=== PATIENT | female | born 1955 | race African-American/Black ===

== ENCOUNTER 2018-10-16 09:26 | Emergency (ER) | payer OTHER ==
[~2018-10-16] VITALS: Ht 198.1 cm; Wt 72.0 kg
[~2018-10-16 09:26] MED LIST: ADV250 IH; ALBU8HFA IH; AMIT50TA3 PO; AMLO-511 PO; BECL8.7A6 IH; KDUR10 PO; OMEP20TA2 PO; SIMV-260 PO; TRIA1TAB3 PO
[2018-10-16] MEDS ORDERED: SODIUM CHLORIDE 0.9% 1,000 ML IV ONE (10:45)
[2018-10-16] MEDS ORDERED: MECLIZINE HCL 25 MG TABLET PO ONE ×2 (10:45→13:45)
[2018-10-16] MEDS ORDERED: ONDANSETRON HCL 4 MG/2 ML VIAL IVP ONE (10:45)
[2018-10-16 11:01] LABS: BASOPHILS % (AUTO) 0.8 % (0.0-2.0); EOSINOPHILS % (AUTO) 4.3 % (1.0-6.0); HEMOGLOBIN 13.2 g/dL (12.0-16.0); LYMPHOCYTES # (AUTO) 1.6 K/uL (1.0-4.8); LYMPHOCYTES % (AUTO) 26.8 % (22.0-44.0); MEAN CORPUSCULAR HEMOGLOBIN 31.8 pg (26.0-34.0); MEAN CORPUSCULAR HGB CONC 33.7 G/dL (31.0-37.0); MEAN CORPUSCULAR VOLUME 94 fL (80-100); MONOCYTES # (AUTO) 0.5 K/uL (0.1-1.0); MONOCYTES % (AUTO) 8.4 % (2.0-9.0); NEUTROPHILS # (AUTO) 3.5 K/uL (1.8-7.7); NEUTROPHILS % (AUTO) 59.7 % (40.0-70.0); PLATELET COUNT (AUTO) 323 K/uL (150-450); RED BLOOD CELL COUNT(AUTO) 4.15 MIL/uL (4.00-5.20); RED CELL DISTRIBUTION WIDTH 12.8 % (11.5-14.5)
[2018-10-16 11:11] LABS: ANION GAP 10 mmol/L (8-16); CALCIUM, TOTAL 8.9 mg/dL (8.8-10.5); CARBON DIOXIDE 30 mmol/L (22-29); CHLORIDE 103 mmol/L (98-107); CREATININE 1.01 mg/dL (0.60-1.30); GLOMERULAR FILTR. RATE CALC > 60 mL/min (>60); GLUCOSE,RANDOM 105 mg/dL (70-110); POTASSIUM 3.1 mmol/L (3.5-5.1); SODIUM SERUM 143 mmol/L (136-145); UREA NITROGEN, BLOOD 13 mg/dL (7-18)
[2018-10-16 11:33] LABS: ALANINE AMINOTRANSFERASE 25 U/L (12-78); ALBUMIN 3.9 g/dL (3.4-5.0); ALKALINE PHOSPHATASE 57 U/L (46-116); ASPARTATE AMINOTRANSFERASE 20 U/L (15-37); BILIRUBIN,TOTAL 0.5 mg/dL (0.1-1.0); TOTAL PROTEIN, SERUM 7.2 g/dL (6.4-8.2)
[2018-10-16 12:12] LABS: AMPHET/METH SCREEN,URINE NEGATIVE (NEGATIVE); BARBITURATE SCREEN, URINE NEGATIVE (NEGATIVE); BENZODIAZEPINES SCREEN,URINE NEGATIVE (NEGATIVE); CANNABINOID SCREEN,URINE POSITIVE (NEGATIVE); COCAINE SCREEN,URINE NEGATIVE (NEGATIVE); METHADONE SCREEN, URINE NEGATIVE (NEGATIVE); OPIATE SCREEN,URINE POSITIVE (NEGATIVE); PHENCYCLIDINE SCREEN,URINE NEGATIVE (NEGATIVE)
[2018-10-16 12:39] LABS: APPEARANCE,URINE CLEAR (CLEAR); BILIRUBIN,URINE NEGATIVE (NEGATIVE); GLUCOSE, URINE (UA) NEGATIVE (NEGATIVE); KETONES,URINE TRACE mg/dL (NEGATIVE); LEUKOCYTE ESTERASE ,URINE NEGATIVE (NEGATIVE); NITRATE,URINE NEGATIVE (NEGATIVE); OCCULT BLOOD,URINE NEGATIVE (NEGATIVE); PROTEIN,URINE NEGATIVE (NEGATIVE)
[2018-10-16 12:43] LABS: BACTERIA,URINE Rare /HPF (None Seen); RBC,URINE None Seen /HPF (0-2); SQUAMOUS EPITHELIAL CELL,UR Rare /LPF (None Seen); WBC,URINE 0-2 /HPF (0-5)
[2018-10-16] MEDS ORDERED: POTASSIUM CHLORIDE 20 MEQ ER TABLET PO ONE (13:45)
[2018-10-16 14:06] VITALS: BP 109/79
== END 2018-10-16 14:13 | disposition home or self-care (01) ==
LOC: EMS 09:27
DX: R42 Dizziness and giddiness (principal); I10 Essential (primary) hypertension; E78.00 Pure hypercholesterolemia, unspecified; J44.9 Chronic obstructive pulmonary disease, unspecified; K21.9 Gastro-esophageal reflux disease without esophagitis; F32.9 Major depressive disorder, single episode, unspecified; Z88.0 Allergy status to penicillin; Z88.1 Allergy status to other antibiotic agents; Z87.891 Personal history of nicotine dependence; Z79.899 Other long term (current) drug therapy
CPT/HCPCS: 36415; 70450; 80053; 80307; 81001; 84484; 85025; 93005; 96361; 96374; 99285; J2405; J7030

== ENCOUNTER 2019-03-08 06:19 | Day surgery (SDC) | payer OTHER ==
[~2019-03-08] VITALS: Ht 167.6 cm; Wt 55.0 kg
[~2019-03-08 06:19] MED LIST changes: +SODIUM CHLORIDE 0.9% 1,000 ML IV ONE
[2019-03-08] MEDS ORDERED: LIDOCAINE 2% 11 ML JELLY TP ONE (06:20)
[2019-03-08] MEDS ORDERED: BENZOCAINE 20% 50 MCG/SPRAY 57 GM TP ONE (06:20)
[2019-03-08] MEDS ORDERED: ALBUTEROL SULFATE 2.5 MG/0.5 ML NEB SOLUTION NEB ONE (06:20)
[2019-03-08] MEDS ORDERED: MELO-107 PO (07:18)
[2019-03-08] MEDS ORDERED: POLY454P5 MC (07:18)
[2019-03-08] MEDS ORDERED: CHOL50004 PO (07:18)
[2019-03-08] MEDS ORDERED: DICL2100G TP (07:18)
[2019-03-08] MEDS ORDERED: HYDR-4119 PO (07:18)
[2019-03-08] MEDS ORDERED: TRIA1TAB91 PO (07:18)
[2019-03-08] MEDS ORDERED: SODIUM CHLORIDE 0.9% 1,000 ML IV ONE (07:30)
[2019-03-08] MEDS ORDERED: MIDAZOLAM HCL 2 MG/2 ML VIAL ONE (07:49)
[2019-03-08] MEDS ORDERED: FentaNYL CITRATE-PF 100 MCG/2 ML VIAL ONE (07:50)
== END 2019-03-08 10:10 | disposition home or self-care (01) ==
LOC: SURGERY 06:19
PROVIDERS: ATTEND Internal Medicine Critical Care Medicine
DX: R05 Cough (principal); Z53.8 Procedure and treatment not carried out for other reasons; E78.00 Pure hypercholesterolemia, unspecified; M19.90 Unspecified osteoarthritis, unspecified site; I70.0 Atherosclerosis of aorta; Z98.890 Other specified postprocedural states; Z98.51 Tubal ligation status; Z90.710 Acquired absence of both cervix and uterus
CPT/HCPCS: 71250; 93005; J7030; J2250; J3010

== ENCOUNTER 2019-04-07 06:29 | Day surgery (SDC) | payer OTHER ==
[~2019-04-07] VITALS: Ht 167.6 cm; Wt 52.3 kg
[~2019-04-07 06:29] MED LIST changes: -ADV250 IH; -ALBU8HFA IH; -AMIT50TA3 PO; -BECL8.7A6 IH; +CHOL50004 PO; +DICL2100G TP; +HYDR-4119 PO; +MELO-107 PO; -OMEP20TA2 PO; +POLY454P5 MC; -TRIA1TAB3 PO; +TRIA1TAB91 PO
[2019-04-07] MEDS ORDERED: SODIUM CHLORIDE 0.9% 1,000 ML IV ONE (06:30)
[2019-04-07] MEDS ORDERED: ALBUTEROL SULFATE 2.5 MG/0.5 ML NEB SOLUTION NEB ONE (06:30)
[2019-04-07] MEDS ORDERED: BENZOCAINE 20% 50 MCG/SPRAY 57 GM TP ONE (06:30)
[2019-04-07] MEDS ORDERED: LIDOCAINE 2% 30 ML JELLY TP ONE (06:30)
[2019-04-07] MEDS ORDERED: MIDAZOLAM HCL 2 MG/2 ML VIAL ONE (08:28)
[2019-04-07] MEDS ORDERED: FentaNYL CITRATE-PF 100 MCG/2 ML VIAL ONE (08:28)
[2019-04-07] MEDS ORDERED: MethylPREDNISolone SOD SUCC 125 MG/2 ML VIAL IVP ONE (09:15)
[2019-04-07] MEDS ORDERED: MethylPREDNISolone SOD SUCC 125 MG/2 ML VIAL ONE (09:29)
[2019-04-07] MEDS ORDERED: OXYGEN THERAPY IH SCH (20:00)
== END 2019-04-07 11:05 | disposition home or self-care (01) ==
LOC: SURGERY 06:29
PROVIDERS: ATTEND Internal Medicine Critical Care Medicine
DX: J38.4 Edema of larynx (principal); B37.0 Candidal stomatitis; E78.00 Pure hypercholesterolemia, unspecified; M19.90 Unspecified osteoarthritis, unspecified site; Z98.890 Other specified postprocedural states; Z98.51 Tubal ligation status; Z90.710 Acquired absence of both cervix and uterus; Z72.89 Other problems related to lifestyle
CPT/HCPCS: 31623; 31624; 71045; 87015; 87070; 87101; 87205; 87206; 87220; 88108; 88312; J2250; J2930; J3010; J7030

== ENCOUNTER 2019-09-04 23:17 | Emergency (ER) | payer OTHER ==
[~2019-09-04] VITALS: Ht 167.6 cm; Wt 53.2 kg
[~2019-09-04 23:17] MED LIST changes: -AMLO-511 PO; +AMLO5TAB9 PO; -DICL2100G TP; -POLY454P5 MC; -SODIUM CHLORIDE 0.9% 1,000 ML IV ONE
[2019-09-05 06:12] VITALS: BP 115/85
[2019-09-05] MEDS ORDERED: IBUPROFEN 600 MG TABLET PO ONE (06:15)
== END 2019-09-05 08:08 | disposition home or self-care (01) ==
LOC: EMS 23:17
DX: S13.4XXA Sprain of ligaments of cervical spine, initial encounter (principal); I10 Essential (primary) hypertension; E78.00 Pure hypercholesterolemia, unspecified; K21.9 Gastro-esophageal reflux disease without esophagitis; J44.9 Chronic obstructive pulmonary disease, unspecified; F32.9 Major depressive disorder, single episode, unspecified; Z88.0 Allergy status to penicillin; Z88.1 Allergy status to other antibiotic agents; Z79.899 Other long term (current) drug therapy; Z87.891 Personal history of nicotine dependence; V49.40XA Driver injured in collision with unspecified motor vehicles in traffic accident, initial encounter; Y93.89 Activity, other specified; Y92.89 Other specified places as the place of occurrence of the external cause; Y99.8 Other external cause status
CPT/HCPCS: 72125; 99406

== ENCOUNTER 2019-12-22 06:15 | Day surgery (SDC) | payer OTHER ==
[~2019-12-22] VITALS: Ht 167.6 cm; Wt 49.5 kg
[~2019-12-22 06:15] MED LIST changes: +CHOL125C2 PO; -CHOL50004 PO; +SODIUM CHLORIDE 0.9% 1,000 ML ONE
[2019-12-22] MEDS ORDERED: LIDOCAINE 2% 30 ML JELLY TP ONE (06:16)
[2019-12-22] MEDS ORDERED: ALBUTEROL SULFATE 2.5 MG/0.5 ML NEB SOLUTION NEB ONE (06:16)
[2019-12-22] MEDS ORDERED: LIDOCAINE 4% 50 ML SOLUTION TP ONE (06:16)
[2019-12-22] MEDS ORDERED: BENZOCAINE 20% 50 MCG/SPRAY 57 GM TP ONE (06:16)
[2019-12-22] MEDS ORDERED: SODIUM CHLORIDE 0.9% 1,000 ML IV ONE (06:30)
[2019-12-22] MEDS ORDERED: FentaNYL CITRATE-PF 100 MCG/2 ML VIAL ONE (08:03)
[2019-12-22] MEDS ORDERED: MIDAZOLAM HCL 2 MG/2 ML VIAL ONE (08:03)
[2019-12-22] MEDS ORDERED: MethylPREDNISolone SOD SUCC 125 MG/2 ML VIAL IVP ONE (08:45)
[2019-12-22] MEDS ORDERED: MethylPREDNISolone SOD SUCC 125 MG/2 ML VIAL ONE (09:09)
[2019-12-22] MEDS ORDERED: OXYGEN THERAPY IH SCH (20:00)
== END 2019-12-22 10:50 | disposition home or self-care (01) ==
LOC: SURGERY 06:15
PROVIDERS: ATTEND Internal Medicine Critical Care Medicine
DX: R06.2 Wheezing (principal); J98.8 Other specified respiratory disorders; J34.89 Other specified disorders of nose and nasal sinuses; J38.4 Edema of larynx; B37.0 Candidal stomatitis; Z79.899 Other long term (current) drug therapy
CPT/HCPCS: 31623; 31624; 71045; 87015; 87070; 87101; 87205; 87206; 87220; J2250; J2930; J3010; J7030; 88108; 88312

== ENCOUNTER 2020-10-16 15:09 | Emergency (ER) | payer OTHER ==
[~2020-10-16] VITALS: Ht 167.6 cm; Wt 50.0 kg
[~2020-10-16 15:09] MED LIST changes: +AMLO-257 PO; -AMLO5TAB9 PO; -KDUR10 PO; +POTA-92 PO; -SODIUM CHLORIDE 0.9% 1,000 ML ONE
[2020-10-16 16:57] VITALS: BP 144/86
[2020-10-16] MEDS ORDERED: KETOROLAC TROMETHAMINE 30 MG/ML VIAL IM ONE (17:15)
[2020-10-16] MEDS ORDERED: LIDOCAINE 5% TRANSDERMAL PATCH TD ONE (17:15)
== END 2020-10-16 17:38 | disposition home or self-care (01) ==
LOC: EMS 15:24
DX: M62.838 Other muscle spasm (principal); F32.9 Major depressive disorder, single episode, unspecified; I10 Essential (primary) hypertension; K21.9 Gastro-esophageal reflux disease without esophagitis; J44.9 Chronic obstructive pulmonary disease, unspecified; Z87.891 Personal history of nicotine dependence; Z88.0 Allergy status to penicillin
CPT/HCPCS: 96372; 99283; J1885

== ENCOUNTER 2022-10-25 03:17 | Emergency (ER) | payer OTHER ==
[~2022-10-25] VITALS: Ht 167.6 cm; Wt 55.0 kg
[~2022-10-25 03:17] MED LIST changes: -CHOL125C2 PO; +CHOL500013 PO; -MELO-107 PO; +MELO-381 PO; +TRIA-97 PO; -TRIA1TAB91 PO
[2022-10-25] MEDS ORDERED: ACETAMINOPHEN 325 MG TABLET PO ONE (04:00)
[2022-10-25] MEDS ORDERED: IBUPROFEN 600 MG TABLET PO ONE (04:00)
[2022-10-25 06:57] VITALS: BP 136/89
== END 2022-10-25 07:04 | disposition home or self-care (01) ==
LOC: EMS 03:18
DX: M79.645 Pain in left finger(s) (principal); M25.511 Pain in right shoulder; Z88.0 Allergy status to penicillin
CPT/HCPCS: 99284; 73030-TC; 73140-TC; Z7502; Z7610

== ENCOUNTER 2022-10-29 17:38 | Emergency (ER) | payer OTHER ==
[~2022-10-29] VITALS: Ht 167.6 cm; Wt 54.5 kg
[2022-10-29] MEDS ORDERED: ACETAMINOPHEN 325 MG TABLET PO ONE (19:00)
[2022-10-29] MEDS ORDERED: MUPIROCIN CALCIUM 2% 22 GM OINTMENT TP ONE (19:00)
[2022-10-29] MEDS ORDERED: DOXYCYCLINE HYCLATE 100 MG TABLET PO ONE (19:00)
[2022-10-29] MEDS ORDERED: PERTUSS(ACELL),DIPH,TET VAC/PF 0.5 ML SYRINGE IM. ONE (19:00)
[2022-10-29 19:15] VITALS: BP 145/74
== END 2022-10-29 19:40 | disposition home or self-care (01) ==
LOC: EMS 17:39
DX: S01.451A Open bite of right cheek and temporomandibular area, initial encounter (principal); Z88.0 Allergy status to penicillin; Y04.1XXA Assault by human bite, initial encounter; Y93.89 Activity, other specified; Y92.89 Other specified places as the place of occurrence of the external cause; Y99.8 Other external cause status
CPT/HCPCS: 90471; 90715; 99284

== ENCOUNTER 2023-04-30 06:34 | Day surgery (SDC) | payer OTHER ==
[~2023-04-30] VITALS: Ht 167.6 cm; Wt 54.5 kg
[2023-04-30] MEDS ORDERED: SODIUM CHLORIDE 0.9% 1,000 ML IV ONE (07:00)
[2023-04-30] MEDS ORDERED: SODIUM CHLORIDE 0.9% 1,000 ML ONE (07:18)
[2023-04-30] MEDS ORDERED: MIDAZOLAM HCL 2 MG/2 ML VIAL ONE (07:36)
[2023-04-30] MEDS ORDERED: FentaNYL CITRATE PF 100 MCG/2 ML VIAL ONE (07:36)
[2023-04-30] MEDS ORDERED: MethylPREDNISolone SOD SUCC 125 MG/2 ML VIAL IVP ONE (10:30)
== END 2023-04-30 11:40 | disposition home or self-care (01) ==
LOC: SURGERY 06:34
PROVIDERS: ATTEND Internal Medicine Critical Care Medicine
DX: J38.4 Edema of larynx (principal); B37.0 Candidal stomatitis; Z88.0 Allergy status to penicillin; Z88.8 Allergy status to other drugs, medicaments and biological substances; Z98.890 Other specified postprocedural states; I10 Essential (primary) hypertension; Z79.899 Other long term (current) drug therapy
CPT/HCPCS: 31623; 88112; 87206; 87101; 87220; 87070; 31624; 94640; 71045; 87015; J3010; J2250; J2930; J7030

== ENCOUNTER 2023-10-17 04:23 | Emergency (ER) | payer OTHER ==
[~2023-10-17] VITALS: Ht 167.6 cm; Wt 55.0 kg
[2023-10-17] MEDS ORDERED: ONDANSETRON HCL 4 MG/2 ML VIAL IVP ONE (04:45)
[2023-10-17] MEDS ORDERED: FAMOTIDINE 20 MG/2 ML VIAL IVP ONE (04:45)
[2023-10-17] MEDS ORDERED: MORPHINE SULFATE 2 MG/ML SYRINGE IVP ONE (04:45)
[2023-10-17] MEDS ORDERED: KETOROLAC TROMETHAMINE 15 MG/ML VIAL IVP ONE (04:45)
[2023-10-17] MEDS ORDERED: KETOROLAC TROMETHAMINE 30 MG/ML VIAL IVP ONE (04:45)
[2023-10-17 04:59] LABS: BASOPHILS % (AUTO) 0.9 % (0.0-2.0); HEMATOCRIT 34.5 % (36-46); HEMOGLOBIN 11.6 g/dL (12.0-16.0); LYMPHOCYTES # (AUTO) 1.2 K/uL (1.0-4.8); LYMPHOCYTES % (AUTO) 33.9 % (22.0-44.0); MEAN CORPUSCULAR HEMOGLOBIN 32.1 pg (26.0-34.0); MEAN CORPUSCULAR HGB CONC 33.7 G/dL (31.0-37.0); MEAN CORPUSCULAR VOLUME 95 fL (80-100); MONOCYTES # (AUTO) 0.4 K/uL (0.1-1.0); NEUTROPHILS # (AUTO) 1.5 K/uL (1.8-7.7); NEUTROPHILS % (AUTO) 42.2 % (40.0-70.0); PLATELET COUNT (AUTO) 315 K/uL (150-450); RED BLOOD CELL COUNT(AUTO) 3.62 MIL/uL (4.00-5.20); RED CELL DISTRIBUTION WIDTH 15.2 % (11.5-14.5); WHITE BLOOD COUNT (AUTO) 3.6 K/uL (4.5-11.0)
[2023-10-17 05:09] LABS: ANION GAP 6 mmol/L (8-16); CALCIUM, TOTAL 8.9 mg/dL (8.8-10.5); CARBON DIOXIDE 32 mmol/L (22-29); CHLORIDE 107 mmol/L (98-107); CREATININE 0.97 mg/dL (0.60-1.30); GLOMERULAR FILTR. RATE CALC > 60 mL/min (>60); GLUCOSE,RANDOM 106 mg/dL (70-110); POTASSIUM 3.6 mmol/L (3.5-5.1); SODIUM SERUM 145 mmol/L (136-145); UREA NITROGEN, BLOOD 14 mg/dL (7-18)
[2023-10-17 05:14] LABS: ALANINE AMINOTRANSFERASE 18 U/L (12-78); ALBUMIN 3.3 g/dL (3.4-5.0); ALKALINE PHOSPHATASE 58 U/L (46-116); ASPARTATE AMINOTRANSFERASE 19 U/L (15-37); BILIRUBIN,TOTAL 0.3 mg/dL (0.1-1.0); LIPASE 35 U/L (16-77); TOTAL PROTEIN, SERUM 6.6 g/dL (6.4-8.2)
[2023-10-17 05:28] VITALS: TEMP 98.3
[2023-10-17] MEDS ORDERED: IOHEXOL 350 MG/ML 100 ML VIAL ONE (07:12)
[2023-10-17] MEDS ORDERED: SODIUM CHLORIDE 0.9% 100 ML ONE (07:12)
[2023-10-17 07:13] LABS: APPEARANCE,URINE CLEAR (CLEAR); BILIRUBIN,URINE NEGATIVE (NEGATIVE); COLOR,URINE YELLOW (YELLOW); GLUCOSE, URINE (UA) NEGATIVE (NEGATIVE); KETONES,URINE NEGATIVE (NEGATIVE); LEUKOCYTE ESTERASE ,URINE NEGATIVE (NEGATIVE); NITRATE,URINE NEGATIVE (NEGATIVE); OCCULT BLOOD,URINE NEGATIVE (NEGATIVE); PROTEIN,URINE 30-70 mg/dL (NEGATIVE); SPECIFIC GRAVITIY, URINE 1.043 (1.003-1.030)
[2023-10-17 08:25] VITALS: BP 140/82; PULSE 68; RESP 14
[2023-10-17] MEDS ORDERED: PERCT PO (08:25)
[2023-10-17] MEDS ORDERED: ONDA-104 PO (08:25)
[2023-10-17] MEDS ORDERED: FLUT1BLS IH (17:32)
[2023-10-17] MEDS ORDERED: MONT-40 PO (17:32)
[2023-10-17] MEDS ORDERED: BACL20TA PO (17:32)
[2023-10-17] MEDS ORDERED: OMEP20CA12 PO (17:32)
[2023-10-17] MEDS ORDERED: ALBU18HF12 IH (17:32)
[2023-10-17] MEDS ORDERED: FLUT16SP NASAL (17:32)
== END 2023-10-17 08:15 | disposition still patient (30) ==
LOC: EMS 04:24
DX: R10.33 Periumbilical pain (principal); G89.29 Other chronic pain; Z98.890 Other specified postprocedural states; Z88.0 Allergy status to penicillin; Z88.8 Allergy status to other drugs, medicaments and biological substances
CPT/HCPCS: 99285; 74177; 96374; 96375; 80053; 81003; 83690; 85025; 36415; J3490; J1885; J2270; J2405; Q9967; J7050